=== PATIENT | female | born 1975 | race Caucasian/White ===

== ENCOUNTER 2018-03-07 15:40 | Day surgery (SDC) | payer OTHER ==
[2018-03-07] VITALS (9 sets, daily range): BP systolic 98–123; BP diastolic 55–75; PULSE 67–109; TEMP 98.4–99
[~2018-03-07] VITALS: Ht 162.6 cm; Wt 67.3 kg
[2018-03-07 16:11] LABS: COLLECTION METHOD CLEAN CATCH
[2018-03-07 16:17] LABS: PH 7 (5-8); SQUAMOUS EPITHELIAL 0-2 /hpf; URINE APPEARANCE Clear; URINE BACTERIA Rare /hpf; URINE BILIRUBIN Negative (NEGATIVE); URINE BLOOD Negative (NEGATIVE); URINE COLOR Yellow; URINE GLUCOSE Negative (NEGATIVE); URINE KETONE Negative (NEGATIVE); URINE LEUKOCYTE ESTERASE Negative (NEGATIVE); URINE NITRATE Negative (NEGATIVE); URINE PROTEIN(semi-quant) Negative (NEGATIVE); URINE RBC 0-2 /hpf; URINE UROBILINOGEN Negative (NEGATIVE)
[2018-03-07 16:46] LABS: BASO % 0.3 % (0.0-2.0); EOS # 0.2 (0.0-0.7); EOS % 1.9 % (0-4.0); GRAN # 8.6 (1.4-6.5); GRAN % 78.4 % (42.2-75.2); HEMATOCRIT 39.4 % (37.0-47.0); HEMOGLOBIN 13.3 g/dl (12.5-16.0); LYMPH # 1.3 (1.2-3.4); LYMPH % 11.6 % (20.0-51.0); MEAN CELL VOLUME 92 fl (80.0-100.0); MEAN CORPUSCULAR HEMOGLOBIN 31 pg (27.0-31.0); MEAN CORPUSCULAR HGB CONC 34 g/dl (33.0-37.0); MEAN PLATELET VOLUME 9.6 fl (7.4-10.4); MONO # 0.8 (0.1-0.6); MONO % 7.4 % (1.7-9.3); PLATELET COUNT 184 K/mm3 (130-400); RED BLOOD COUNT 4.27 M/mm3 (4.10-5.30); REDCELL DISTRIBUTION WIDTH-CV 13.2 % (11.5-14.5)
[2018-03-07 16:57] LABS: ALBUMIN 4.3 gm/dL (3.5-5.0); BILIRUBIN,TOTAL 1.1 mg/dL (0.0-1.0); C-REACTIVE PROTEIN 0.7 mg/dL (0.0-0.9); CALCIUM 9.1 mg/dL (8.4-10.2); CREATININE, serum 0.63 mg/dL (0.52-1.25); POTASSIUM 4.2 mmol/L (3.4-5.0); TOTAL PROTEIN 7.3 gm/dL (6.4-8.2)
--- NOTE | 2018-03-07 23:15 | NUR ---
Pt tolerating PO well without nausea since initial complaint. Eating and drinking appropriately. No complaints of abdominal pain. Pt complains of intermittent back pain. Has been up to bathroom x3 without difficulty. VSS. IV fluids d/c'd per MD order. Will continue to monitor.
--- NOTE | 2018-03-08 01:41 | NUR ---
Pt to floor from surgery. A&O x3. Family at beside. No signs of distress or discomfort. Pt denies pain but states she has mild nausea. Abdominal lap sites x3 clean dry and intact- covered with bandaids.
[2018-03-08 04:11] VITALS: BP 99/66; PULSE 84; TEMP 98
--- NOTE | 2018-03-08 06:45 | NUR ---
Report given to Haris COREY. Pt resting with HOB elevated. Reports back pain has improved from heat pad and pain medication.
--- NOTE | 2018-03-08 09:30 | NUR ---
Pt discharged. Pt ambulated to exit without difficulty, picked up in private vehicle
== END 2018-03-08 09:31 | disposition home or self-care (01) ==
LOC: COL.ER 15:40 → SDCO 18:27 → COL.ER 18:30 → SURG 18:30 → SDCO 03-08 09:31 → SURG 03-08 09:31
PROVIDERS: Emergency Medicine
DX: K35.80 Unspecified acute appendicitis (principal); F17.210 Nicotine dependence, cigarettes, uncomplicated; Z90.710 Acquired absence of both cervix and uterus; Z90.49 Acquired absence of other specified parts of digestive tract; Z88.0 Allergy status to penicillin; Z91.040 Latex allergy status
CPT/HCPCS: J0690; J1100; J1885; J2405; J2704; J3010; J7030; J7120; Q9967

== ENCOUNTER → 2018-06-08 | Outpatient (CLI) | payer OTHER | LOC: COL.RAD 09:06 | DX: G44.309 Post-traumatic headache, unspecified, not intractable (principal) ==